=== PATIENT | female | born 1985 ===

== ENCOUNTER 2024-07-23 09:29 | Outpatient (CLI) | payer OTHER | END 2024-07-23 09:40 | disposition home or self-care (01) | LOC: RAD 09:29 | PROVIDERS: ATTEND Obstetrics & Gynecology Reproductive Endocrinology | DX: N93.0 Postcoital and contact bleeding (principal) ==

== ENCOUNTER 2025-07-31 09:15 | Outpatient (CLI) | payer OTHER | END 2025-07-31 09:17 | disposition home or self-care (01) | LOC: SONOGRAMA 09:15 | DX: E04.1 Nontoxic single thyroid nodule (principal) ==